=== PATIENT | male | born 1960 | race Caucasian/White ===

== ENCOUNTER 2020-09-04 20:33 | Emergency (ER) | payer OTHER, SELFPAY ==
[2020-09-04 20:31] VITALS: BP 141/91; PULSE 75; RESP 16; TEMP 36.7; O2SAT 99; BMI 25.1
--- NOTE | 2020-09-04 20:41 | CT_ITS ---
PROCEDURE INFORMATION: Exam: CT Head Without Contrast Exam date and time: 09/04/2020 8:41 PM Age: 60 years old Clinical indication: Syncope and collapse; Patient HX: Syncope, didn't hit head, no head symptoms TECHNIQUE: Imaging protocol: Computed tomography of the head without contrast. Radiation optimization: All CT scans at this facility use at least one of these dose optimization techniques: automated exposure control; mA and/or kV adjustment per patient size (includes targeted exams where dose is matched to clinical indication); or iterative reconstruction. COMPARISON: No relevant prior studies available. FINDINGS: Brain: No hemorrhage, mass effect or midline shift. Cerebral ventricles: No ventriculomegaly. Bones/joints: No acute fracture. Paranasal sinuses: Mild ethmoid and sphenoid sinusitis. Mastoid air cells: Visualized mastoid air cells are well aerated. Soft tissues: No acute changes IMPRESSION: 1. Mild ethmoid and sphenoid sinusitis. 2. No hemorrhage, mass effect or midline shift.
--- NOTE | 2020-09-04 20:41 | XR_ITS ---
PROCEDURE INFORMATION: Exam: XR Chest Exam date and time: 09/04/2020 8:41 PM Age: 60 years old Clinical indication: Patient HX: Syncope, nonsmoker, no SX TECHNIQUE: Imaging protocol: XR of the chest. Views: 2 views. COMPARISON: No relevant prior studies available. FINDINGS: Lungs: Atelectatic changes noted within the left lung base and right middle lobe. Mild bilateral hyperinflation. Pleural spaces: Unremarkable. No pleural effusion. No pneumothorax. Heart/Mediastinum: Unremarkable. No cardiomegaly. Bones/joints: The thoracic spine demonstrates mild degenerative changes at multiple levels. IMPRESSION: 1. Atelectatic changes noted within the left lung base and right middle lobe. 2. Mild bilateral hyperinflation.
--- NOTE | 2020-09-04 20:41 | ECG_ITS ---
APPROVED REPORT Exam: Resting ECG HR:79 bpm ECG Measurements Heart Rate 79 AXES RI 200 P 68 QRSd 92 QRS 28 QT 396 T 53 QTc 454 Conclusion Normal sinus rhythm Left atrial abnormality Borderline ECG Electronically signed by : Walter Figueroa, 09/05/2020 18:13:59
--- NOTE | 2020-09-04 20:43 | [facility].EDSYNC ---
ED Disposition Clinical Impression: Episode of syncope Qualifiers: Syncope type: unspecified Qualified Code(s): R55 - Syncope and collapse Disposition: Home, Self-Care Condition on Discharge: Good Instructions: DI for Syncope in Adults (Fainting) Additional Instructions: see card and pcp and recheck if any problems Referrals: Provider,Referral, MD [Primary Care Provider] - - Critical Care Critical Care Time: No Attestation: On 09/04/20, the high probability of a clinically significant, sudden or life threatening deterioration of the following system(s) required my full and direct attention, intervention and personal management. The time I documented below is in addition to time spent performing reported procedures but includes the following listed in this critical care notation. Medical Decision Making - Medical Records Medical records reviewed: Yes: I reviewed the patient's medical records. - Earl Inquiry Pt receiving controlled substance: No Vital Signs: 09/04/20 20:31 09/04/20 21:13 Temperature 98.0 F Temperature Source Oral Pulse Rate 74 Pulse Rate [Left Radial] 75 Respiratory Rate 16 16 Blood Pressure 141/94 H Blood Pressure [Right Arm] 141/91 H Blood Pressure Mean [Right Arm] 107 Blood Pressure Source Automatic Cuff Blood Pressure Source [Right Arm] Automatic Cuff Blood Pressure Position Sitting Blood Pressure Position [Right Arm] Sitting 02 Sat by Pulse Oximetry 99 97 Oxygen Delivery Method Room Air Room Air - Lab Data Lab results reviewed: Yes: I reviewed the patient's lab results. Lab Results 09/04/20 19:40: WBC 7.0, RBC 4.55 L, Hgb 13.9 L, Hct 41.9 L, MCV 92.0, MCH 30.5, MCHC 33.2, RDW 13.2, Plt Count 349, MPV 8.1, Neut % (Auto) 52.0, Lymph % (Auto) 34.4, Bladen % (Auto) 7.3, Eos % (Auto) 5.7, Baso % (Auto) 0.5, Neut # (Auto) 3.6, Lymph # (Auto) 2.4, Bladen # (Auto) 0.5, Eos # (Auto) 0.4, Baso # (Auto) 0.0, ESR 8 09/04/20 19:40: Sodium 138, Potassium 3.9, Chloride 100, Carbon Dioxide 30, Anion Gap 11.9, BUN 16, Creatinine 0.80, Estimated Creat Clear 107, Estimated GFR 99, Est GFR ( Amer) 119, Glucose 102 H, Calcium 9.4, Troponin I < 0.01, C-Reactive Protein 0.8 09/04/20 19:40: Total Bilirubin 0.6, Direct Bilirubin 0.1, Conjugated Bilirubin 0.0, Indirect Bilirubin 0.5, Unconjugated Bilirubin 0.4, AST 44, ALT 36, Alkaline Phosphatase 70, Total Protein 7.3, Albumin 4.6 09/04/20 20:50: Chlamy pneumoniae PCR Not detected, Adenovirus (PCR) Not detected, B. pertussis DNA (PCR) Not detected, Coronavirus OC43 (PCR) Not detected, Coronavirus HKU1 (PCR) Not detected, Coronavirus 229E (PCR) Not detected, SARS-CoV-2 (PCR) Not detected, Coronavirus NL63 (PCR) Not detected, Human Metapneumovir PCR Not detected, Influenza A (H1) PCR Not detected, Influ A (H1N1/09) PCR Not detected, Influenza A (H3) PCR Not detected, Influenza Type A (PCR) Not detected, Influenza Type B (PCR) Not detected, M. pneumoniae (PCR) Not detected, Parainfluenza 1 (PCR) Not detected, Parainfluenza 2 (PCR) Not detected, Parainfluenza 3 (PCR) Not detected, Parainfluenza 4 (PCR) Not detected, RSV (PCR) Not detected, Entero/Rhino (PCR) Not detected 09/04/20 22:59: Troponin I < 0.01 Result diagrams: 09/04/20 19:40 09/04/20 19:40 Orders (Tests/Meds): ED MEDICATIONS Generic Name Dose Route Start Last Admin Trade Name Freq PRN Reason Stop Dose Admin Sodium Chloride 1,000 mls @ 999 mls/hr 09/04/20 20:45 09/04/20 20:45 Sod Chlor 0.9% 1000ml Bag IV 09/04/20 21:45 999 mls/hr .[id number] LEEANN Administration ORDERS Category Date Time Status Troponin I Q3H Lab 09/05/20 02:45 Ordered - Radiology Data #1 Image(s): Chest Image Reviewed: Yes I reviewed the patient's radiology image Preliminary Findings: Normal/NAD - CT Data CT Scan: Head Time Received: 23:[address] Reviewed: Yes: I have viewed the radiologist's interpretation Preliminary Findings: Normal/NAD - ECG Data Tracing #1 Normal Sinus
[2020-09-04 20:53] LABS: Adenovirus,PCR Not Detected (NotDetected); Bordetella Pertussis Not Detected (NotDetected); Chlamydophila Pneumoniae, PCR Not Detected (NotDetected); Coronavirus 19, PCR Not Detected (NotDetected); Coronavirus 229E Not Detected (NotDetected); Coronavirus NL63 Not Detected (NotDetected); Coronavirus OC43 Not Detected (NotDetected); Coronovirus HKU1,PCR Not Detected (NotDetected); Human Metapneumovirus Not Detected (NotDetected); Influenza A, PCR Not Detected (NotDetected); Influenza AH1, 2009 Not Detected (NotDetected); Influenza AH1, PCR Not Detected (NotDetected); Influenza AH3,PCR Not Detected (NotDetected); Influenza B, PCR Not Detected (NotDetected); Mycoplasma Pneumoniae, PCR Not Detected (NotDetected); Parainfluenza 1, PCR Not Detected (NotDetected); Parainfluenza 2, PCR Not Detected (NotDetected); Parainfluenza 3, PCR Not Detected (NotDetected); Parainfluenza 4, PCR Not Detected (NotDetected); Respiratory Syncytial Virus Not Detected (NotDetected); Rhinovirus/Enterovirus Not Detected (NotDetected)
[2020-09-04 20:54] LABS: Basophils % 0.5 % (0.1-2.0); Eosinophils # 0.4 K/mm3 (0.0-0.4); Eosinophils % 5.7 % (0.1-12.0); Hematocrit 41.9 % (42.0-52.0); Hemoglobin 13.9 g/dL (14.1-18.0); Lymphocytes # 2.4 K/mm3 (0.7-4.5); Lymphocytes % 34.4 % (10-50); Mean Corpuscular HGB Conc 33.2 g/dL (31.8-35.4); Mean Corpuscular Hemoglobin 30.5 pg (27.0-31.2); Mean Platelet Volume 8.1 fl (7.4-10.4); Monocytes # 0.5 K/mm3 (0.1-1.0); Monocytes % 7.3 % (1.7-9.3); Neutrophils # 3.6 K/mm3 (1.8-7.8); Platelet Count 349 K/mm3 (142-424); Red Blood Count 4.55 M/mm3 (4.60-6.20); Red Cell Distribution Width 13.2 % (11.5-17.5)
[2020-09-04 21:05] LABS: Alanine Aminotransferase 36 U/L (12-78); Albumin Level 4.6 g/dl (3.5-5.0); Alkaline Phosphatase 70 U/L (38-126); Anion Gap 11.9 mEq/L (5-15); Aspartate Amino Transferase 44 U/L (17-59); Bilirubin,Direct 0.1 mg/dl (0.0-0.4); Bilirubin,Indirect 0.5 mg/dL (0.0-0.9); Bilirubin,Total 0.6 mg/dl (0.2-1.3); Bilirubin,Unconjugated 0.4 mg/dL (0.0-1.1); Blood Urea Nitrogen 16 mg/dl (9-20); Calcium 9.4 mg/dl (8.4-10.2); Carbon Dioxide 30 mmol/L (22.0-30.0); Chloride 100 mmol/L (98-107); Creatinine Clearance Estimated 107 mL/min (50-200); Estimated Glomerular Filt Rate 99 ml/min (>60); GFR (African American) 119 ML/MIN (>60); Glucose 102 mg/dl (74-100); Potassium 3.9 mmoL/L (3.5-5.1); Sodium 138 mmol/L (136-145); Total Protein,Serum 7.3 g/dl (6.3-8.2)
[2020-09-04 21:11] LABS: C-Reactive Protein 0.8 mg/L (0-4)
[2020-09-04 21:13] VITALS: BP 141/94; PULSE 74; RESP 16; O2SAT 97
[2020-09-04 21:21] LABS: Erythrocyte Sedimentation Rate 8 mm/hr (0-20); Troponin I < 0.01 ng/ml (0.00-0.034)
[2020-09-04 23:26] LABS: Troponin I < 0.01 ng/ml (0.00-0.034)
[2020-09-04 23:51] VITALS: BP 123/74; PULSE 81; RESP 18; TEMP 36.7; O2SAT 98
== END 2020-09-04 23:58 | disposition home or self-care (01) ==
PROVIDERS: Emergency Provider Emergency Medicine
DX: R55 Syncope and collapse (principal); Z20.822 Contact with and (suspected) exposure to COVID-19; I10 Essential (primary) hypertension; Z79.899 Other long term (current) drug therapy
CPT/HCPCS: 70450; 71046; 80048; 80076; 84484; 85025; 85651; 86140; 87581; 87633; 87798; 93005; 96365; 99282